=== PATIENT | female | born 1940 | race Caucasian/White ===

== ENCOUNTER 2019-12-04 06:00 | Outpatient (RCR) | payer MEDICARE, OTHER, SELFPAY | END 2019-12-05 23:59 | disposition home or self-care (01) | LOC: MOT 06:00 | PROVIDERS: Family Provider Internal Medicine; Referring Provider Internal Medicine; Visit Provider Internal Medicine | DX: I89.0 Lymphedema, not elsewhere classified (principal); L03.113 Cellulitis of right upper limb | CPT/HCPCS: 97140; 97166 ==

== ENCOUNTER 2019-12-06 06:00 | Outpatient (RCR) | payer MEDICARE, OTHER, SELFPAY | END 2020-01-03 23:59 | disposition home or self-care (01) | LOC: MOT 06:00 | PROVIDERS: Family Provider Internal Medicine; Referring Provider Internal Medicine; Visit Provider Internal Medicine | DX: I89.0 Lymphedema, not elsewhere classified (principal); L03.113 Cellulitis of right upper limb | CPT/HCPCS: 97110; 97140 ==

== ENCOUNTER 2020-09-20 12:30 | Outpatient (CLI) | payer MEDICARE, OTHER, SELFPAY | END 2020-09-20 12:31 | disposition home or self-care (01) | LOC: LAB 12:33 | PROVIDERS: Visit Provider Internal Medicine | DX: T82.7XXA Infection and inflammatory reaction due to other cardiac and vascular devices, implants and grafts, initial encounter (principal); I48.91 Unspecified atrial fibrillation; X58.XXXA Exposure to other specified factors, initial encounter | CPT/HCPCS: 85610 ==

== ENCOUNTER 2020-10-08 13:19 | Outpatient (CLI) | payer MEDICARE, OTHER, SELFPAY ==
[2020-10-08 14:27] LABS: INR 1.46 (0.8-1.2)
== END 2020-10-08 13:20 | disposition home or self-care (01) ==
PROVIDERS: Visit Provider Internal Medicine
DX: I48.91 Unspecified atrial fibrillation (principal)
CPT/HCPCS: 85610

== ENCOUNTER → 2020-11-06 13:14 | Outpatient (BNVA) | payer MEDICARE, OTHER, SELFPAY | PROVIDERS: Visit Provider Nurse Practitioner | DX: J22 Unspecified acute lower respiratory infection (principal); R50.9 Fever, unspecified | CPT/HCPCS: 87400 ==

== ENCOUNTER → 2020-11-09 17:12 | Outpatient (BNVA) | payer MEDICARE, OTHER, SELFPAY | PROVIDERS: Visit Provider Nurse Practitioner | DX: Z20.828 Contact with and (suspected) exposure to other viral communicable diseases (principal); R50.9 Fever, unspecified | CPT/HCPCS: 87635 ==

== ENCOUNTER 2020-11-11 13:28 | Emergency (ER) | payer MEDICARE, OTHER, SELFPAY ==
[2020-11-11 13:38] VITALS: BP 145/77; PULSE 105; RESP 20; TEMP 36.8; O2SAT 94; BMI 35.2
--- NOTE | 2020-11-11 16:03 | XR_ITS ---
WS: [id number] Portable AP upright chest, today Clinical Data: dyspnea/cough Comparison: Portable chest, 05/13/2019 Findings: No nodules, masses or effusions are seen. The heart is normal. The pulmonary vascularity is not increased. No pneumonia or pneumothorax is seen. The aortic arch and descending aorta are tortuo us. There is minimal opacity in the right upper lobe which could represent atelectasis. There are cli ps in the right axilla from previous surgery. 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 There are clips in the right upper quadrant from a cholecystectomy. XR/XR chest 1V portable [id number] Impression: Atherosclerosis.
--- NOTE | 2020-11-11 16:21 | ED_ITS ---
HPI - COVID General: Chief Complaint: COVID symptoms Stated Complaint: covid symptoms/fever Time Seen by Provider: 11/11/20 15:55 Triage information: Has fever, cough or shortness of breath . No known COVID + exposure last 14 days History of Present Illness: HPI Narrative: 80-year-old female presents emergency room with complaint of shortness of breath and cough. This began 1 week ago. She did have Covid testing done but the results are not back yet initially she had some diarrhea but that is improved. Cough is been nonproductive. When initially went to see the patient the Covid test was marked is pending while I was in the room seeing the patient it resulted and is positive. It was done on 11/09/2020 complaint: known COVID positive Prior covid testing: yes, results known Prior testing date: 11/09/20 COVID 19 common symptoms: positive fever(s), chills, cough, non-productive cough, dyspnea, fatigue, body aches, throat pain, nasal congestion, nausea and diarrhea COVID 19 other sytmptoms: negative chest pain or requiring oxygen Onset (ago): day(s) (7) Severity: mild Pertinent comorbid conditions: hypertension Treatment prior to arrival: acetaminophen COVID Results: SARS-CoV-2 RNA (RT-PCR) Detected (NOT DETECTED) A 11/09/20 17:12 11/09/20 Review of Systems Const: Reports: fever(s), chills, body aches and fatigue ENMT: Reports: throat pain and nasal congestion Card: Denies: chest pain, edema, dyspnea on exertion or orthopnea Resp: Reports: dyspnea and non-productive cough GI: Reports: nausea and diarrhea : Denies: flank pain, difficulty voiding, dysuria, urinary frequency or urinary urgency Skin/Breast: Denies: rash or pruritus PFS ED PFSH: Medical History (Updated 11/11/20 @ 16:53 by Chris Meng DO) A-fib HTN (hypertension) Female Reproductive History: Spontaneous abortions: No Physical Exam Const: COMMON NORMALS: no acute distress GENERAL APPEARANCE: cooperative and comfortable ORIENTATION/CONSCIOUSNESS: Yes awake, Yes oriented to person, Yes oriented to place and Yes oriented to time HENMT: COMMON NORMALS: normocephalic, atraumatic and hearing grossly normal bilaterally HEAD & SCALP: normocephalic and atraumatic Neck/C-Spine: COMMON NORMALS: no JVD Resp: COMMON NORMALS: normal respiratory effort, No retractions and No use of accessory muscles AUSCULTATION: crackles (bases) Cardio: COMMON NORMALS: no JVD, regular rate, regular rhythm and No murmurs present (Cardio) RATE: regular rate RHYTHM: regular rhythm GI: COMMON NORMALS: Soft to palpation and No hepatosplenomegaly present AUSCULTATION: Yes normoactive bowel sounds PALPATION: Yes Soft to palpation, No Tenderness to palpation present (GI), No Guarding due to palpation present (GI) and Yes No hepatosplenomegaly present Extremity: COMMON NORMALS: normal to inspection, capillary refill normal, no clubbing, cyanosis or edema, no calf tenderness and no pedal edema Neuro: SENSORIUM/ORIENTATION: Yes oriented to person, Yes oriented to place and Yes oriented to time Skin: COMMON NORMALS: no rashes or lesions noted GENERAL SKIN EXAM: no rashes or lesions noted Course Vital Signs: Vital signs: Vital Signs Temperature 98.2 F 11/11/20 13:38 Pulse Rate 92 11/11/20 16:54 Respiratory Rate 16 11/11/20 16:54 Blood Pressure 154/88 11/11/20 16:54 Pulse Oximetry 95 11/11/20 16:54 MDM - COVID MDM Narrative: Medical decision making narrative: Patient's test came back positive while she was in the emergency room was 1 was done as an outpatient couple days ago reviewed the findings with her she is tolerating well not requiring more oxygen we will go and discharge her home put her on dexamethasone however come back to the monoclonal antibody infusion clinic tomorrow discussed the risk benefits with her she would like to proceed and did sign the consent case management is scheduling in the infusion clinic. COVID Results: SARS-CoV-2 RNA (RT-PCR) Detected (NOT DETECTED) A 11/09/20 17:12 11/09/20 Monoclonal Antibody Treatments Inclusion/Exclusion Criteria weight >/= 40 kg and + direct Sars-Cov-2 test less than 7-10 days ago age >/= 65 and age >/= 55 and has hypertension not requiring hospitalization and not requiring oxygen (if not chronically on oxygen) Patient education patient/family/caregiver received/reviewed fact sheet, Emergency Use Authorization/unapproved drug status discussed with patient/family/caregiver, alternatives to this treatment discussed with patient/family/caregiver, risks a nd benefits of medication reviewed with patient/family/caregiver, patient/family/caregiver given opportunity for questions, which were answered and patient consents to receiving Monoclonal Antibody Treatment Plan for treatment Meets criteria for Monoclonal Antibody infusion Ordering Monoclonal Antibody infusion for another day Discharge Plan Discharge Patient Disposition: Home Clinical Impression: COVID-19 Condition: Stable Prescriptions: New dexamethasone 6 mg tablet 6 mg PO DAILY Qty: 7 RF: 0 Discontinued prednisone 20 mg tablet 40 mg PO DAILY@0600 RF: 0 No Action amlodipine 10 mg tablet 10 mg PO DAILY@0600 RF: 0 famotidine 20 mg tablet 20 mg PO BID@18 RF: 0 levothyroxine 125 mcg capsule 125 mcg PO DAILY@05 RF: 0 lisinopril 40 mg tablet 40 mg PO DAILY@0600 RF: 0 atorvastatin 40 mg tablet 40 mg PO DAILY@1800 RF: 0 warfarin 4 mg tablet 4 mg PO DAILY@1800 RF: 0 warfarin 6 mg tablet 6 mg PO DAILY@1800 RF: 0 cetirizine [Zyrtec] 10 mg tablet 10 mg PO DAILY PRN (Reason: Allergic Reaction) RF: 0 albuterol sulfate 90 mcg/actuation HFA aerosol inhaler 2 puff inhalation Q6H PRN (Reason: Shortness Of Breath) RF: 0 fluticasone propion-salmeterol [Advair Diskus] 100-50 mcg/dose blister with device 1 inh inhalation BID@ RF: 0 docusate sodium [Stool Softener] 100 mg capsule 100 mg PO DAILY PRN (Reason: constipation) RF: 0 cholecalciferol (vitamin D3) 125 mcg (5,000 unit) capsule 125 mcg PO DAILY@1200 RF: 0 albuterol sulfate 2.5 mg /3 mL (0.083 %) solution for nebulization 2.5 mg inhalation Q4H PRN (Reason: Shortness Of Breath) RF: 0 levofloxacin 500 mg tablet 500 mg PO DAILY@06 RF: 0 Discharge Orders: Discharge ED (Routine); Ordered 11/11/20 Ordered By: Chris Meng Discharge Diet: Usual diet Discharge Activity: Increase activity as tolerated Activity Restrictions/Additional Instructions: Case management will call to make arrangements for you to get a monoclonal antibody infusion at tomorrow's infusion clinic. Coding Level of Care Code ED Frame Table Operator for Chg Fwd Exam Comprehensive
[2020-11-11 16:54] VITALS: BP 154/88; PULSE 92; RESP 16; O2SAT 95
--- NOTE | 2020-11-11 17:10 | DCPLANNER ---
district branch manager was asked to help schedule a BAM infusion for patient. district branch manager called Ally in centralized scheduling and informed her that an order for the BAM infusion was being faxed to scheduling. district branch manager faxed order for infusion to centralized scheduling.
[2020-11-11 17:21] VITALS: BP 156/84; PULSE 105; RESP 16; TEMP 37.2; O2SAT 94
== END 2020-11-11 17:23 | disposition home or self-care (01) ==
PROVIDERS: Emergency Provider Family Medicine
DX: U07.1 COVID-19 (principal); Z79.01 Long term (current) use of anticoagulants; I48.91 Unspecified atrial fibrillation; I10 Essential (primary) hypertension
CPT/HCPCS: 12345; 71045; 99281; 99282

== ENCOUNTER 2020-11-12 14:02 | Outpatient (CLI) | payer MEDICARE, OTHER, SELFPAY ==
[2020-11-12 14:05] VITALS: BMI 33.8
[2020-11-12 14:20] VITALS: BP 134/87; PULSE 85; RESP 19; TEMP 36.9; O2SAT 96
--- NOTE | 2020-11-12 14:23 | AMB.MCA ---
Patient Information Referred by: Esperanza Symptom onset date: 11/05/20 COVID 19 common symptoms: positive cough, non-productive cough, throat pain, nasal congestion and nausea COVID 19 other sytmptoms: positive pleuritic pain; negative chest pressure, chest pain, requiring oxygen, requiring more oxygen, respiratory distress or cyanosis Severity: moderate Treatment prior to arrival: none [facility] COVID test results: SARS-CoV-2 RNA (RT-PCR) Detected (NOT DETECTED) A 11/09/20 17:12 11/09/20 Criteria/Plan Inclusion/Exclusion Criteria weight >/= 40kg, + direct test </= 10 days ago and symptom onset </= 10 days ago age >/= 65, age >/= 55 and has hypertension and age >/= 55 and has diabetes not requiring hospitalization, not requiring oxygen (if not chronically on oxygen) and no increase oxygen requirement (if chronically on oxygen) Patient education patient/caregiver received/reviewed fact sheet, Emergency Use Authorization/unapproved drug status discussed with patient/caregiver, alternatives to this treatment discussed with patient/caregiver, risks and benefits of medication reviewed with patient/caregiver, patient/caregiver given opportunity for questions, which were answered and patient/caregiver consents to receiving Monoclonal Antibody Treatment Plan for treatment Meets criteria for Monoclonal Antibody infusion Ordering Monoclonal Antibody infusion for today
[2020-11-12 15:03] VITALS: BP 131/63; PULSE 77; RESP 17; TEMP 36.7; O2SAT 95
[2020-11-12 16:20] VITALS: BP 122/71; PULSE 74; RESP 17; O2SAT 94
[2020-11-12 16:26] VITALS: BP 122/71; PULSE 74; RESP 17; TEMP 36.7; O2SAT 94
--- NOTE | 2020-11-12 16:27 | PC.NURSE ---
1625 iv discontinued with catheter intact, no new symptoms or concerns. pt escorted to private vehicle in wheelchair by nursing staff. no complaints at this time.
--- NOTE | 2020-11-18 15:27 | DCPLANNER ---
Addendum entered by Marilin Dudley 11/24/20 11:11: photo lab manager called to speak with patient after getting the BAM infusion. photo lab manager spoke with patients daughter, she stated that patient is doing a little better, that she had 3-4 really rough days but is doing better today. Patient has not been admitted to hospital anywhere. Original Note: photo lab manager had message that patient received the BAM infusion. photo lab manager called to check on patient after receiving the infusion. photo lab manager spoke with patients daughter, she stated that patient is not doing the best. Daughter stated that before the infusion patient had a fever, a lot of respatory symptoms, cough, head congestion, headaches. After the infusion, patient is still running a fever, had a rough day yesterday, 11.17.20, but better today. Patient does have home health in the home.
== END 2020-11-12 16:20 | disposition home or self-care (01) ==
PROVIDERS: PCP Internal Medicine; Visit Provider Family Medicine
DX: U07.1 COVID-19 (principal)
CPT/HCPCS: 96365; J7050

== ENCOUNTER 2021-09-02 14:27 | Emergency (ER) | payer MEDICARE, OTHER, SELFPAY ==
[2021-09-02 14:34] VITALS: BP 136/68; PULSE 81; RESP 18; TEMP 36.2; O2SAT 98; BMI 36.6
--- NOTE | 2021-09-02 14:39 | ED_ITS ---
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 She states her right leg somehow got bent back behind me when she fell. She denies striking her head or LOC. She does not complain of neck pain or back pain. She has complaints of right knee and lower leg pain as well as foot pain. She tells me she has not been able to be ambulatory since the fall secondary to discomfort in the right leg. MD complaint: knee injury, leg injury, ankle injury and foot injury Onset (ago): hour(s) Injury: Right: knee, ankle and foot Place: home Severity: moderate Relieving factors: immobilization Exacerbating factors: weight bearing, movement and palpation Context: fall Associated symptoms: Reports inability to bear weight Other symptoms: none Review of Systems Const: Denies: fever(s), chills, body aches or fatigue Eyes: Denies: change in vision Card: Denies: chest pain Resp: Denies: dyspnea GI: Denies: abdominal pain Musc: Reports: extremity pain (R leg) and joint pain (R knee, R ankle); Denies: neck pain or back pain Neuro: Denies: headache(s), numbness in extremities, weakness in extremities, sensory changes or dizziness [facility] ED PFSH: Medical History (Updated 09/02/21 @ 15:39 by FREEDOM Martino) A-fib HTN (hypertension) Female Reproductive History: Spontaneous abortions: No Physical Exam Const: COMMON NORMALS: no acute distress, patient oriented x3 and no limitations GENERAL APPEARANCE: cooperative NUTRITIONAL APPEARANCE: obese ORIENTATION/CONSCIOUSNESS: Yes awake, Yes oriented to person, Yes oriented to place and Yes oriented to time HENMT: COMMON NORMALS: normocephalic and atraumatic HEAD & SCALP: normocephalic and atraumatic Neck/C-Spine: COMMON NORMALS: full ROM CERVICAL SPINE: No pain with cervical ROM and No Cervical spine tenderness Chest: COMMONS NORMALS: normal inspection of the chest and normal palpation of entire chest wall Resp: COMMON NORMALS: normal respiratory effort Cardio: COMMON NORMALS: regular rate and regular rhythm RATE: regular rate RHYTHM: regular rhythm Back/Pelvis: THORACIC SPINE/UPPER BACK: Yes normal to inspection and No thoracic spinal tenderness LUMBAR SPINE/LOWER BACK: Yes normal to inspection and No lumbar spinal tenderness Extremity: GENERAL: Yes normal exam except as noted RIGHT LOWER EXTREMITY: Yes knee joint (TTP lateral R knee; maintains fairly good ROM) Right knee: Yes inspection (no effusion noted) and Yes neurovascular exam (normal), Yes foot & digits (TTP to medial ankle with mild swelling) and Yes foot & digits (swelli ng/ecchymosis to R dorsal foot) Right foot and digits: Yes neurovascular exam (normal) Neuro: DELBERT COMA SCALE: document [facility] findings Delbert coma scale eye opening: Spontaneous [place] coma scale verbal response: Orientated [place] coma scale motor response: Obey commands [place] coma scale total score: 15 COMMON NORMALS: patient oriented x3, moves all extremities, no focal motor deficits and no sensory deficits noted SENSORIUM/ORIENTATION: Yes oriented to person, Yes oriented to place and Yes oriented to time Skin: COMMON NORMALS: no rashes or lesions noted GENERAL SKIN EXAM: no rashes or lesions noted TRAUMA: no lacerations or abrasions Course Vital Signs: Vital signs: Vital Signs Temperature 97.2 F L 09/02/21 14:34 Pulse Rate 77 09/02/21 14:45 Respiratory Rate 18 09/02/21 14:45 Blood Pressure 136/68 09/02/21 14:34 Pulse Oximetry 95 09/02/21 14:45 MDM - Extremity Injury (Lower) MDM Narrative: Medical decision making narrative: Patient's XRs are normal. Daughter states patient has a wheelchair that she can use at home to help maneuver around the home. Recommend ice and elevation and follow-up with primary care in 3 to 5 days if symptoms are not improving. Imaging Data^: XR R ankle: Radiologist's impression: [place] [address] [id number] ReportSigned Patient: Sue Berry #: [id number]: 1940Acct#:[id number]/Sex: 81 / FADM Date: 09/02/21Loc: ERRoom/Be d:Attending Dr: Ordering Provider/Ordering MD: Brenda Hernández Date of Service: 09/02/21 Procedure(s): XR ankle RT min 3V* 43046 Accession Number(s): [id number] Report Number: [id number] WS: [email or web address] Exam: XR ankle RT min 3V* 35485 Date/Time of Exam: 09/02/2021 2:49 PM Reason For Exam: injury/swelling/pain No fracture or dislocation. The ankle mortise is intact. Mild soft tissue swelli ng laterally. XR/XR ankle RT min 3V* 82133 IMPRESSION: 1. Soft tissue swelling-no acute fracture. Dictated By:Damonigned By:Damonigned Date/ Time:09/02/21 1511DD/ 10 XR R knee: Radiologist's impression: [place] [address] XRay Report Signed Patient: Brenda Berry Unit #: [id number] : 1940 Age/Sex: 81 / F ADM Date: 09/02/21 Loc: ER Room/Bed: Attending Dr: Ordering Provider/Ordering MD: Brenda Hernández Date of Service: 09/02/21 Procedure(s): XR knee RT 3V* 05123 Accession Number(s): [id number] Report Number: [id number] WS: [email or web address] Exam: XR knee RT 3V* 61043 Date/Time of Exam: 09/02/2021 2:49 PM Reason For Exam: injury/pain No fracture or dislocation noted. Articular relationships are intact. No joint effusion. XR/XR knee RT 3V* 61896 Impression: Normal right knee Kellgren-Devonte Classification: 0 Dictated By: Praveen Dsouza DO Signed By: Praveen Dsouza DO Signed Date/Time: 09/02/21 1513 DD/ 1512 XR R tib/fib: Radiologist's impression: Jildy [employer] Speech [address] [place] [address] XRay Report Signed Patient: Brenda Berry Unit #: [id number] : 1940 Age/Sex: 81 / F ADM Date: 09/02/21 Loc: ER Room/Bed: Attending Dr: Ordering Provider/Ordering MD: Brenda Hernández Date of Service: 09/02/21 Procedure(s): XR tibia fibula RT 2V 41498 Accession Number(s): [id number] Report Number: [id number] WS: [email or web address] Exam: XR tibia fibula RT 2V 45591 Date/Time of Exam: 09/02/2021 2:49 PM Reason For Exam: injury No fracture or dislocation. Articular relationships are intact. Scattered soft tissue calcifications noted posteriorly. XR/XR tibia fibula RT 2V 81637 IMPRESSION: 1. No fracture or dislocation. Dictated By: Praeven Dsouza DO Signed By: Praveen Dsouza DO Signed Date/Time: 09/02/21 1513 DD/ 1513 XR R foot: Radiologist's impression: [address] [address] XRay Report Signed Patient: Brenda Berry Unit #: [id number] : 1940 Age/Sex: 81 / F ADM Date: 09/02/21 Loc: ER Room/Bed: Attending Dr: Ordering Provider/Ordering MD: Brenda Hernández Date of Service: 09/02/21 Procedure(s): XR foot RT min 3V* 93965 Accession Number(s): [id number] Report Number: [id number] WS: [email or web address] Exam: XR foot RT min 3V* 66092 Date/Time of Exam: 09/02/2021 2:49 PM Reason For Exam: swelling/injury/pain No acute fracture or dislocation. Osteopenia. 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 Normal soft tissues. XR/XR foot RT min 3V* 88836 IMPRESSION: 1. No acute fracture. Dictated By: Praveen Dsouza DO Signed By: Praveen Dsouza DO Signed Date/Time: 09/02/211511 DD/ 10 Discharge Plan Discharge Patient Disposition: Home Clinical Impression: Fall from slipping Qualifiers: Encounter type: initial encounter Qualified Code(s): W01.0XXA - Fall on same level from slipping, tripping and stumbling without subsequent striking against object, initial encounter Injury of right lower extremity Qualifiers: Encounter type: initial encounter Qualified Code(s): S89.91XA - Unspecified injury of right lower leg, initial encounter Condition: Stable Prescriptions: No Action amlodipine 10 mg tablet 10 mg PO DAILY@0600 RF: 0 famotidine 20 mg tablet 20 mg PO BID@18 RF: 0 levothyroxine 125 mcg capsule 125 mcg PO DAILY@05 RF: 0 lisinopril 40 mg tablet 40 mg PO DAILY@0600 RF: 0 atorvastatin 40 mg tablet 40 mg PO DAILY@1800 RF: 0 cetirizine [Zyrtec] 10 mg tablet 10 mg PO DAILY@0600 RF: 0 albuterol sulfate 90 mcg/actuation HFA aerosol inhaler 2 puff inhalation Q6H PRN (Reason: Shortness Of Breath) RF: 0 fluticasone propion-salmeterol [Advair Diskus] 100-50 mcg/dose blister with device 1 inh inhalation BID@ RF: 0 docusate sodium [Stool Softener] 100 mg capsule 100 mg PO DAILY PRN (Reason: constipation) RF: 0 cholecalciferol (vitamin D3) 125 mcg (5,000 unit) capsule 125 mcg PO DAILY@1200 RF: 0 albuterol sulfate 2.5 mg /3 mL (0.083 %) solution for nebulization 2.5 mg inhalation Q4H PRN (Reason: Shortness Of Breath) RF: 0 multivitamin Tablet 1 tab PO DAILY RF: 0 clobetasol 0.05 % Cream 1 applic TOPICAL BID PRN (Reason: Rash) RF: 0 Vitamin B-12 500 mcg Tablet 500 mcg PO DAILY RF: 0 folic acid 1 mg Tablet 1 mg PO DAILY RF: 0 doxycycline hyclate 100 mg tablet 100 mg PO DAILY RF: 0 Eliquis 5 mg tablet 5 mg PO BID RF: 0 Discharge Orders: Discharge ED (Routine); Ordered 09/02/21 Ordered By: Brenda Hernández Referrals: Kobe Miller DO [Primary Care Provider] - Patient Instructions: R.I.C.E. Treatment (ED) Coding Level of Care Code ED Bulb Planter for Chg Fwd Exam Comprehensive
--- NOTE | 2021-09-02 14:44 | XR_ITS ---
WS: [email or web address] Exam: XR ankle RT min 3V* [id number] Date/Time of Exam: 09/02/2021 2:49 PM Reason For Exam: injury/swelling/pain No fracture or dislocation. The ankle mortise is intact. Mild soft tissue swelling laterally. XR/XR ankle RT min 3V* 45836 IMPRESSION: 1. Soft tissue swelling-no acute fracture.
--- NOTE | 2021-09-02 14:44 | XR_ITS ---
WS: [email or web address] Exam: XR tibia fibula RT 2V 42951 Date/Time of Exam: 09/02/2021 2:49 PM Reason For Exam: injury No fracture or dislocation. Articular relationships are intact. Scattered soft tissue calcifications noted posteriorly. XR/XR tibia fibula RT 2V 91264 IMPRESSION: 1. No fracture or dislocation.
--- NOTE | 2021-09-02 14:44 | XR_ITS ---
WS: [email or web address] Exam: XR foot RT min 3V* 36769 Date/Time of Exam: 09/02/2021 2:49 PM Reason For Exam: swelling/injury/pain No acute fracture or dislocation. Osteopenia. 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 Normal soft tissues. XR/XR foot RT min 3V* 29657 IMPRESSION: 1. No acute fracture.
--- NOTE | 2021-09-02 14:44 | XR_ITS ---
WS: [email or web address] Exam: XR knee RT 3V* 49738 Date/Time of Exam: 09/02/2021 2:49 PM Reason For Exam: injury/pain No fracture or dislocation noted. Articular relationships are intact. No joint effusion. XR/XR knee RT 3V* 08144 Impression: Normal right knee Kellgren-Devonte Classification: 0
[2021-09-02 14:45] VITALS: PULSE 77; PULSE 79; RESP 18; O2SAT 95
== END 2021-09-02 15:50 | disposition home or self-care (01) ==
PROVIDERS: Emergency Provider Physician Assistant; PCP Internal Medicine
DX: S89.91XA Unspecified injury of right lower leg, initial encounter (principal); W01.0XXA Fall on same level from slipping, tripping and stumbling without subsequent striking against object, initial encounter; I48.91 Unspecified atrial fibrillation; Z79.01 Long term (current) use of anticoagulants; I10 Essential (primary) hypertension
CPT/HCPCS: 73562; 73590; 73610; 73630; 99282

== ENCOUNTER → 2021-11-27 14:53 | Outpatient (BNVA) | payer MEDICARE, OTHER, SELFPAY | PROVIDERS: PCP Internal Medicine; Visit Provider Emergency Medicine | DX: Z20.822 Contact with and (suspected) exposure to COVID-19 (principal); R11.0 Nausea; J45.21 Mild intermittent asthma with (acute) exacerbation | CPT/HCPCS: 87635 ==

== ENCOUNTER 2021-11-30 16:23 | Outpatient (CLI) | payer MEDICARE, OTHER, SELFPAY ==
--- NOTE | 2021-11-30 16:33 | XRR_ITS ---
PROCEDURE INFORMATION: Exam: XR Chest Exam date and time: 11/30/2021 4:33 PM Age: 81 years old Clinical indication: Cough and fever and other: Positive covid; Patient HX: Covid positive; Cough, fever; PT says had difficulty with anti body infusion today; Additional info: U07.1 - covid-19, changed to 1 view due to +covid TECHNIQUE: Imaging protocol: XR of the chest. Views: 1 view. COMPARISON: CR XR chest 1V portable [id number] 11/11/2020 4:06 PM FINDINGS: Lungs: Minimal nonspecific opacity in the left lung base, similar to the findings on 11/11/2020. No consolidation. Pleural spaces: There is no pleural effusion or pneumothorax. Heart/Mediastinum: Cardiomediastinal contours are unremarkable. Bones/joints: Bones are unremarkable. Soft tissues: Right axillary surgical clips noted. XR/XR chest 1V 76448 IMPRESSION: 1. No pulmonary consolidation. 2. Minimal opacity at the left lung base likely represents scarring or atelectasis and is stable since 11/11/2020.
== END 2021-11-30 16:24 | disposition home or self-care (01) ==
PROVIDERS: PCP Internal Medicine; Visit Provider Emergency Medicine
DX: U07.1 COVID-19 (principal)
CPT/HCPCS: 71045

== ENCOUNTER 2022-03-14 22:53 | Emergency (ER) | payer MEDICARE, OTHER, SELFPAY ==
[2022-03-14 23:00] VITALS: BP 225/92; PULSE 75; RESP 18; TEMP 36.6; O2SAT 97; BMI 38.8
--- NOTE | 2022-03-14 23:04 | CTR_ITS ---
PROCEDURE INFORMATION: Exam: CT Cervical Spine Without Contrast Exam date and time: 03/14/2022 11:18 PM Age: 81 years old Clinical indication: Injury or trauma; Blunt trauma; Patient HX: Patient fell backwards at home and hit occiput on floor. Currently on eliquis. C collar in place. ; Additional info: Fall TECHNIQUE: Imaging protocol: Computed tomography images of the cervical spine without contrast. Radiation optimization: All CT scans at this facility use at least one of these dose optimization techniques: automated exposure control; mA and/or kV adjustment per patient size (includes targeted exams where dose is matched to clinical indication); or iterative reconstruction. COMPARISON: CR Cervical Spine AP/Lat* [id number] 05/13/2019 1:15 PM RADIATION DOSE METRICS: Total DLP (mGy-cm): 647.77 FINDINGS: Vertebrae: Mild degenerative changes are present in the cervical spine. No area of significant canal stenosis. No acute fracture. Spinal alignment is normal. Soft tissues: Unremarkable. Lungs: Lung apices are normal. CT/CT cervical spin wo con* 64517 IMPRESSION: No cervical spine fracture.
--- NOTE | 2022-03-14 23:04 | CTR_ITS ---
PROCEDURE INFORMATION: Exam: CT Head Without Contrast Exam date and time: 03/14/2022 11:15 PM Age: 81 years old Clinical indication: Injury or trauma; Fall; Blunt trauma (contusions or hematomas); Patient HX: Patient fell backwards at home and hit occiput on floor. Currently on eliquis. C collar in place. TECHNIQUE: Imaging protocol: Computed tomography of the head without contrast. Radiation optimization: All CT scans at this facility use at least one of these dose optimization techniques: automated exposure control; mA and/or kV adjustment per patient size (includes targeted exams where dose is matched to clinical indication); or iterative reconstruction. 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 Mild atrophy and mild white matter chronic microvascular changes are noted. Cerebral ventricles: No ventriculomegaly. Paranasal sinuses: Visualized sinuses are unremarkable. No fluid levels. Mastoid air cells: Visualized mastoid air cells are well aerated. Bones/joints: Unremarkable. No acute fracture. Soft tissues: Unremarkable. CT/CT head wo con* [id number] IMPRESSION: No acute intracranial abnormality.
--- NOTE | 2022-03-14 23:07 | W.ED.FALL ---
HPI - Fall General: Chief Complaint: Fall Stated Complaint: Fall Time Seen by Provider: 03/14/22 22:58 Source: patient and EMS Mode of arrival: EMS Limitations: no limitations History of Present Illness: 81-year-old female states that she had went to stand on the scales in the bathroom she states that she slipped and fell backwards she states that she did hit her head on the bathroom floor this happened roughly an hour ago she does have a headache along with neck pain from her fall. States pain is a 7 out of 10 unsure if she had a loss of consciousness denies any other injuries or pain elsewhere. Associated symptoms-after fall: Reports headache(s) and neck pain; Denies abdominal pain or chest pain Review of Systems Const: Denies: fever(s), chills, body aches or change in appetite Eyes: Denies: blurry vision or eye discomfort ENMT: Denies: throat pain or dental pain Card: Denies: chest pain Resp: Denies: dyspnea GI: Denies: abdominal pain, nausea, vomiting or diarrhea : Denies: dysuria Musc: Reports: neck pain Skin/Breast: Denies: rash Neuro: Reports: headache(s) Psych: Denies: depression Gee/Lymph: Denies: easy bruising All/Imm: Denies: urticaria PFSH ED PFSH: Medical History A-fib Asthma HTN (hypertension) Social History Smoking and tobacco status: former smoker Female Reproductive History: Spontaneous abortions: No Physical Exam Const: COMMON NORMALS: no acute distress, patient oriented x3 and healthy appearing HENMT: COMMON NORMALS: normocephalic HEAD & SCALP: normocephalic OTHER: Tenderness to posterior scalp Eye: COMMON NORMALS: Equal, round and reactive pupils present and EOMs intact bilaterally PUPIL: Yes Equal, round and reactive pupils present Neck/C-Spine: OTHER: In c-collar Chest: COMMONS NORMALS: normal inspection of the chest and normal palpation of entire chest wall Resp: COMMON NORMALS: normal respiratory effort, No retractions, No use of accessory muscles and clear to auscultation bilaterally AUSCULTATION: clear to auscultation bilaterally Cardio: COMMON NORMALS: regular rate, regular rhythm and No murmurs present (Cardio) RATE: regular rate RHYTHM: regular rhythm GI: COMMON NORMALS: Normal to inspection, nondistended, normoactive bowel sounds present, Soft to palpation, non-tender and no masses PALPATION: Yes Soft to palpation Extremity: COMMON NORMALS: normal to inspection and full ROM Neuro: COMMON NORMALS: patient oriented x3, moves all extremities and no focal motor deficits Psych: COMMON NORMALS: mental status grossly normal, Normal thought process present and cooperative THOUGHT PROCESS: Normal thought process present Skin: COMMON NORMALS: no rashes or lesions noted and no wounds GENERAL SKIN EXAM: no rashes or lesions noted Course Vital Signs: Vital signs: Vital Signs Temperature 97.8 F 03/14/22 23:00 Pulse Rate 75 03/14/22 23:00 Respiratory Rate 18 03/14/22 23:00 Blood Pressure 225/92 03/14/22 23:00 Pulse Oximetry 97 03/14/22 23:00 MDM - Fall Medical Decision Making Patient presents here with a closed head injury from a fall her CT scans here are all normal she feels improved here she is stable for discharge follow-up with PCP and return if worsening she understands agrees to plan. Lab Data Radiology Impressions Cervical Spine CT 03/14/22 23:04 IMPRESSION: No cervical spine fracture. Head CT 03/14/22 23:04 IMPRESSION: No acute intracranial abnormality. Discharge Plan Discharge Patient Disposition: Home Clinical Impression: Fall Closed head injury Qualifiers: Encounter type: initial encounter Qualified Code(s): S09.90XA - Unspecified injury of head, initial encounter Condition: Stable Prescriptions: No Action amlodipine 10 mg tablet 10 mg PO DAILY@0600 0RF famotidine 20 mg tablet 20 mg PO BID@06,18 0RF levothyroxine 125 mcg capsule 125 mcg PO DAILY@05 0RF lisinopril 40 mg tablet 40 mg PO DAILY@0600 0RF atorvastatin 40 mg tablet 40 mg PO DAILY@1800 0RF cetirizine [Zyrtec] 10 mg tablet 10 mg PO DAILY@0600 0RF albuterol sulfate 90 mcg/actuation HFA aerosol inhaler 2 puff inhalation Q6H PRN (Reason: Shortness Of Breath) 0RF fluticasone propion-salmeterol [Advair Diskus] 100-50 mcg/dose blister with device 1 inh inhalation BID@06,18 0RF docusate sodium [Stool Softener] 100 mg capsule 100 mg PO DAILY PRN (Reason: constipation) 0RF cholecalciferol (vitamin D3) 125 mcg (5,000 unit) capsule 125 mcg PO DAILY@1200 0RF albuterol sulfate 2.5 mg /3 mL (0.083 %) solution for nebulization 2.5 mg inhalation Q4H PRN (Reason: Shortness Of Breath) 0RF tsvywlozrunhdem-sveprcdon-YX [Bromfed DM] 2-30-10 mg/5 mL syrup 3 ml PO Q6H PRN (Reason: cold symptoms) Qty: 60 0RF dexamethasone 2 mg tablet 6 mg PO DAILY 5 Days Qty: 15 0RF doxycycline hyclate 100 mg tablet 100 mg PO BID 7 Days Qty: 14 0RF ondansetron 4 mg tablet,disintegrating 4 mg PO Q6H PRN (Reason: nausea and vomiting) Qty: 12 0RF Rx Instructions: 340b please multivitamin Tablet 1 tab PO DAILY 0RF clobetasol 0.05 % Cream 1 applic TOPICAL BID PRN (Reason: Rash) 0RF Vitamin B-12 500 mcg Tablet 500 mcg PO DAILY 0RF folic acid 1 mg Tablet 1 mg PO DAILY 0RF Eliquis 5 mg tablet 5 mg PO BID 0RF Discharge Orders: Discharge ED (Routine); Ordered 03/14/22 Ordered By: Rico Rosario Referrals: Kobe Miller DO [Primary Care Provider] - 1-3 days Discharge Diet: Advance as tolerated Discharge Activity: Resume usual activity Patient Instructions: Head Injury (ED) Coding Level of Care Code ED Telemetry Registered Nurse for Chg Fwd Exam Comprehensive
[2022-03-14] MEDS: HYDROcodone-acetaminophen 5-325 mg Tablet 1 TAB PO (23:53)
[2022-03-14 23:54] VITALS: BP 176/84; PULSE 75; RESP 18; O2SAT 96
[2022-03-15 00:13] VITALS: BP 178/94; PULSE 70; RESP 18; O2SAT 96
== END 2022-03-15 00:05 | disposition home or self-care (01) ==
PROVIDERS: Emergency Provider Emergency Medicine; PCP Internal Medicine
DX: S09.90XA Unspecified injury of head, initial encounter (principal); W01.0XXA Fall on same level from slipping, tripping and stumbling without subsequent striking against object, initial encounter
CPT/HCPCS: 70450; 72125; 99283

== ENCOUNTER 2023-08-12 09:55 | Emergency (ER) | payer MEDICARE, OTHER, SELFPAY ==
[2023-08-12] VITALS (9 sets, daily range): BP systolic 138–229; BP diastolic 79–119; PULSE 63–78; RESP 16–18; TEMP 36.6–36.8; O2SAT 96–98; BMI 36.6
--- NOTE | 2023-08-12 10:03 | CTR_ITS ---
PROCEDURE INFORMATION: Exam: CT Thoracic Spine Without Contrast Exam date and time: 08/12/2023 10:30 AM Age: 83 years old Clinical indication: Injury or trauma; Fall; Blunt trauma (contusions or hematomas) TECHNIQUE: Imaging protocol: Computed tomography of the thoracic spine without contrast. Radiation optimization: All CT scans at this facility use at least one of these dose optimization techniques: automated exposure control; mA and/or kV adjustment per patient size (includes targeted exams where dose is matched to clinical indication); or iterative reconstruction. REPORTING DATA: Count of CT and Cardiac NM exams in prior 12 months: This patient has received 0 known CTs and 0 known cardiac nuclear medicine studies in the 12 months prior to the current study. COMPARISON: CT cervical spin wo con* [id number] 03/14/2022 11:18 PM RADIATION DOSE METRICS: Total DLP (mGy-cm): 953.41 FINDINGS: Bones/joints: No acute fracture is identified. The thoracic kyphosis is maintained. There is probable DISH. There is mild degenerative disc disease in the thoracic spine. The thoracic central spinal canal appears adequately patent. Soft tissues: No significant subcutaneous soft tissue swelling. Lymph nodes: A periportal lymph node measures 1.1 x 1.8 cm. A retroperitoneal lymph node measures 1.0 x 1.5 cm. A precarinal lymph node measures 1.3 x 1.7 cm. A subcarinal lymph node measures 1.4 x 3.0 cm. Lungs: Calcified granuloma in the left lower lobe. Ground-glass nodule in the left upper lobe measuring 5.9 mm (image 37). Pulmonary micronodule in the left upper lobe measuring 2.1 mm (image 37). Pulmonary micronodule in the left upper lobe measuring 1.7 mm (image 46). Solid pulmonary nodule in the left upper lobe measuring 3.2 mm (image 74). Solid pulmonary nodule in the right lower lobe measuring 2.1 mm (image 82). Nodule in the right upper lobe measuring 7.8 mm (image 49). Heart: The heart is enlarged. Coronary arteries: Coronary arterial calcifications are noted. CT/CT thoracic spin wo con* [id number] IMPRESSION: 1. No acute fracture in the thoracic spine. 2. Solid and ground-glass pulmonary nodules measuring up to 7.8 mm. As per Fleischner Society 2017 guidelines for follow-up and management of pulmonary nodules: For patients at low risk (minimal or absent history of smoking and of other known risk factors), recommend CT at 3-6 months, then consider CT at 18-24 months. For patient at high risk (history of smoking or of other known risk factors), recommend CT at 3-6 months, then CT at 18-24 months. 3. Mediastinal, retroperitoneal and periportal lymphadenopathy. 4. Cardiomegaly with coronary artery disease.
--- NOTE | 2023-08-12 10:03 | CTR_ITS ---
PROCEDURE INFORMATION: Exam: CT Cervical Spine Without Contrast Exam date and time: 08/12/2023 10:34 AM Age: 83 years old Clinical indication: Injury or trauma; Fall; Blunt trauma TECHNIQUE: Imaging protocol: Computed tomography of the cervical spine without contrast. Radiation optimization: All CT scans at this facility use at least one of these dose optimization techniques: automated exposure control; mA and/or kV adjustment per patient size (includes targeted exams where dose is matched to clinical indication); or iterative reconstruction. REPORTING DATA: Count of CT and Cardiac NM exams in prior 12 months: This patient has received 0 known CTs and 0 known cardiac nuclear medicine studies in the 12 months prior to the current study. COMPARISON: CT cervical spin wo con* [id number] 03/14/2022 11:18 PM RADIATION DOSE METRICS: Total DLP (mGy-cm): 575.9 FINDINGS: Bones/joints: Cervical curvature and alignment is unremarkable. Degenerative changes mid-lower cervical spine with disc space narrowing and endplate osteophytic lipping. No severe stenosis of the central canal or neural foramina evident. No fracture, dislocation or traumatic spondylolisthesis detected. Lungs: Lung apices are normal. Soft tissues: Unremarkable. CT/CT cervical spin wo con* [id number] IMPRESSION: No acute bony abnormalities.
--- NOTE | 2023-08-12 10:03 | CTR_ITS ---
PROCEDURE INFORMATION: Exam: CT Head Without Contrast Exam date and time: 08/12/2023 10:34 AM Age: 83 years old Clinical indication: Injury or trauma; Fall; Blunt trauma (contusions or hematomas) TECHNIQUE: Imaging protocol: Computed tomography of the head without contrast. Radiation optimization: All CT scans at this facility use at least one of these dose optimization techniques: automated exposure control; mA and/or kV adjustment per patient size (includes targeted exams where dose is matched to clinical indication); or iterative reconstruction. REPORTING DATA: Count of CT and Cardiac NM exams in prior 12 months: This patient has received 0 known CTs and 0 known cardiac nuclear medicine studies in the 12 months prior to the current study. 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 Stable 2 neurenteric is left basal ganglia. No evidence of intracranial hemorrhage. No areas of mass effect, edema or midline shift. Cerebral ventricles: Unremarkable for age. Paranasal sinuses: Mild mucosal thickening right maxillary sinus. Mastoid air cells: Visualized mastoid air cells are well aerated. Bones/joints: Hyperostosis frontalis interna. No acute fracture. Soft tissues: Unremarkable. CT/CT head wo con* [id number] IMPRESSION: No acute intracranial abnormalities.
--- NOTE | 2023-08-12 10:06 | ED_ITS ---
HPI - Fall General: Chief Complaint: Fall Stated Complaint: NECK/BACK PAIN S/P FALL Time Seen by Provider: 08/12/23 09:56 History of Present Illness: Brenda Berry is an 83-year-old female that presents to the emergency department after a fall from standing position. Patient states that she was getting up from her bed when she lost her balance and fell backwards. She struck the edge of the bed with her back and then slid to the floor. Is unclear if she hit her head. She is anticoagulated with Eliquis. Patient is primarily complaining of right-sided neck pain but also states that she gets dizzy when she stands up. Neck and upper thoracic pain is worse with head rotation Associated symptoms-after fall: Denies abdominal pain, chest pain, confusion, difficulty walking, headache(s), hematuria or neck pain Review of Systems General: Reports: 10 or more systems reviewed and unremarkable except in HPI and below Const: Denies: fever(s), chills, change in appetite, change in weight, fatigue or malaise Eyes: Denies: change in vision, eye discomfort, eye discharge or eye redness ENMT: Denies: throat pain, enlarged tonsils, odynophagia, hoarseness, ear or mastoid pain, ear discharge, change in hearing, tinnitus, nasal discharge, nasal congestion, post nasal drip or sinus pain Card: Denies: chest pain, palpitations, irregular heart rhythm, edema, dyspnea on exertion, orthopnea or leg pain with exertion Resp: Denies: dyspnea, productive cough, non-productive cough, wheezing, stridor or chest congestion GI: Denies: abdominal pain, nausea, vomiting, dysphagia, diarrhea, constipa tion, bloating, GI cramping or hematochezia : Denies: flank pain, difficulty voiding, dysuria, urinary frequency, urinary urgency, urinary hesitancy, oliguria or hematuria Musc: Denies: neck pain, back pain, extremity pain, joint pain, joint swelling, joint redness, joint warmth or muscle weakness Skin/Breast: Denies: rash, pruritus, erythema, photosensitivity or new lesions Neuro: Denies: headache(s), numbness in extremities, weakness in extremities, sensory changes, lack of coordination, difficulty walking, frequent falls, dizziness, confusion, Slurred speech present, difficulty communicating thoughts, seizure-like activity or involuntary movements Endo: Denies: polyuria, polydipsia or tired all the time Gee/Lymph: Denies: easy bruising or easy bleeding PFSH ED PFSH: Medical History A-fib Asthma HTN (hypertension) Social History Smoking and tobacco status: former smoker Female Reproductive History: Spontaneous abortions: No Physical Exam Const: COMMON NORMALS: no acute distress, patient oriented x3 and alert GENERAL APPEARANCE: cooperative ORIENTATION/CONSCIOUSNESS: Yes awake, Yes oriented to person, Yes oriented to place and Yes oriented to time HENMT: COMMON NORMALS: normocephalic and atraumatic HEAD & SCALP: normocephalic and atraumatic FACE & SINUS: normal facial exam MOUTH: Normal oral and palatal mucosa present THROAT: posterior oropharynx normal Eye: COMMON NORMALS: Equal, round and reactive pupils present, EOMs intact bilaterally, conjunctivae normal and no scleral icterus GENERAL EYE: appearance normal, both eyes and all related structures ALIGNMENT: Yes alignment normal PERIORBITAL: periorbital findings normal CONJUNCTIVA: Yes conjunctivae normal PUPIL: Yes Equal, round and reactive pupils present Neck/C-Spine: COMMON NORMALS: full ROM GENERAL: Yes normal visual inspection Lymph: LYMPHATIC: no lymphadenopathy noted Chest: COMMONS NORMALS: normal inspection of the chest Breast/axilla inspection: Yes no chest deformity, asymmetry, normal contours, no nodules, masses, tenderness Resp: COMMON NORMALS: normal respiratory effort, No retractions, No use of accessory muscles and clear to auscultation bilaterally EFFORT & INSPECTION: Yes able to speak in complete sentences and Yes symmetric chest movement AUSCULTATION: clear to auscultation bilaterally Cardio: COMMON NORMALS: regular rate, regular rhythm and Peripheral pulses 2+ throughout RATE: regular rate RHYTHM: regular rhythm PERIPHERAL PULSES: Peripheral pulses 2+ throughout GI: COMMON NORMALS: Normal to inspection, nondistended, normoactive bowel sounds present, Soft to palpation, non-tender and No hepatosplenomegaly present INSPECTION: Yes normal to inspection AUSCULTATION: Yes normoactive bowel sounds PALPATION: Yes Soft to palpation and Yes No hepatosplenomegaly present RECTAL EXAM: deferred Extremity: COMMON NORMALS: normal to inspection GENERAL: Yes normal exam except as noted Neuro: COMMON NORMALS: patient oriented x3 SENSORIUM/ORIENTATION: Yes alert, Yes oriented to person, Yes oriented to place and Yes oriented to time CRANIAL NERVES: Yes CN normal except as noted Psych: COMMON NORMALS: mental status grossly normal, Normal thought process present, cooperative, activity/motor behavior normal, denies homicidal ideation and denies suicidal ideation THOUGHT PROCESS: Normal thought process present Skin: COMMON NORMALS: no rashes or lesions noted, no wounds and turgor normal GENERAL SKIN EXAM: no rashes or lesions noted and turgor normal Course Vital Signs: Vital signs: Vital Signs Temperature 98 F 08/12/23 10:02 Pulse Rate 63 08/12/23 10:54 Respiratory Rate 18 08/12/23 10:02 Blood Pressure 220/114 08/12/23 13:23 Pulse Oximetry 98 08/12/23 12:00 Oxygen Delivery Me thod Room Air 08/12/23 12:00 MDM - Fall Medical Decision Making Patient is an 83-year-old female that presents to the emergency department with complaints of neck and back pain after a fall from standing. Patient states that her up last night to use restroom at about 0 100. When returning back to bed lost her balance and fell backwards striking her upper back on the edge of her bed. She denies striking her head or LOC. She is anticoagulated Differential diagnosis includes slip and fall, loss of balance, syncope. Patient did describe an episode that was possibly near syncope. Here in the emergency department we obtained a CT head, cervical, thoracic spine and chest x-ray. Also obtain laboratory studies including a troponin and serial EKGs. The CT head and cervical spine were unremarkable. The CT thoracic spine revealed no acute findings however there are several lung nodules that were mentioned. Patient is seeing a hemming and tacking machine operator re: these findings. Patient also noted went a chest x-ray which is stable from last x-ray. Patient does have a pacemaker during her stay she was seen to have a normal sinus rhythm then paced rhythm. She did not display any symptoms of orthostatic hypotension and orthostatics were negative. Patient was ambulated with a walker and she did well. Later in her stay she became hypertensive and her home med isosorbide was given Patient has yet to take all of her morning meds. I did obtain laboratory studies which were largely unremarkable. Creatinine is mildly elevated but unchanged from baseline and her troponin was 14 which is unchanged from baseline. 2-hour delta was -0.10 Patient, her daughter, and I all discussed neck steps. Ultimately they want to go home. Patient has follow-up with her senior manufacturing engineer this week. We have reviewed all of the findings and I have advised them should they go home they need to return promptly if she develops any new, concerning, worsening symptoms including return of hypertension syncope call while additional falls, or chest pain or shortness of breath. They are agreeable. Lab Data 08/12/23 10:22 08/12/23 11:22 Radiology Impressions Cervical Spine CT 08/12/23 10:03 IMPRESSION: No acute bony abnormalities. Head CT 08/12/23 10:03 IMPRESSION: No acute intracranial abnormalities. Thoracic Spine CT 08/12/23 10:03 IMPRESSION: 1. No acute fracture in the thoracic spine. 2. Solid and ground-glass pulmonary nodules measuring up to 7.8 mm. As per Fleischner Society 2017 guidelines for follow-up and management of pulmonary nodules: For patients at low risk (minimal or absent history of smoking and of other known risk factors), recommend CT at 3-6 months, then consider CT at 18-24 months. For patient at high risk (history of smoking or of other known risk factors), recommend CT at 3-6 months, then CT at 18-24 months. 3. Mediastinal, retroperitoneal and periportal lymphadenopathy. 4. Cardiomegaly with coronary artery disease. Chest X-Ray 08/12/23 10:06 IMPRESSION: Mild cardiomegaly, decreased lung volumes, otherwise negative chest. Laboratory Results WBC 7.96 10^3/uL (3.29-11.43) 08/12/23 10: RBC 4.94 10^6/uL (3.85-5.65) 08/12/23 10: Hgb 13.00 g/dL (11.27-16.99) 08/12/23 10: Hct 44.4 % (36-47) 08/12/23 10: MCV 89.9 fl (85-98) 08/12/23 10: MCH 26.3 pg (27-33) L 08/12/23 10: MCHC 29.3 g/dL (30-55) L 08/12/23 10: RDW 14.7 % (12.1-15.1) 08/12/23 10:22 Plt Count 188 10^3/cmm (157-399) 08/12/23 10:22 MPV 10.7 fL (7.4-10.4) H 08/12/23 10:22 Neut % (Auto) 60.8 % 08/12/23 10:22 Lymph % (Auto) 30.4 % 08/12/23 10:22 [place] % (Auto) 5.2 % 08/12/23 10:22 Eos % (Auto) 2.3 % 08/12/23 10:22 Baso % (Auto) 1.0 % 08/12/23 10:22 Neut # (Auto) 4.85 10^3/uL (1.8-7.7) 08/12/23 10:22 Lymph # (Auto) 2.4 10^3/uL (0.8-4.8) 08/12/23 10:22 [place] # (Auto) 0.4 10^3/uL (0.2-0.9) 08/12/23 10:22 Eos # (Auto) 0.2 10^3/uL (0.0-0.8) 08/12/23 10:22 Baso # (Auto) 0.1 10^3/uL (0.0-0.1) 08/12/23 10:22 Nucleated RBC % (auto) 0 % 08/12/23 10:22 Nucleated RBCs # 0.0 /100WBC 08/12/23 10:22 Sodium 142 mmol/L (136-145) 08/12/23 11:22 Potassium 4.6 mmol/L (3.5-5.1) 08/12/23 11:22 Chloride 107 mmol/L (98-107) 08/12/23 11:22 Carbon Dioxide 24 mmol/L (22-29) 08/12/23 11:22 Anion Gap 15.6 (5-19) 08/12/23 11:22 BUN 18 mg/dL (8-23) 08/12/23 11:22 Creatinine 1.0 mg/dL (0.5-0.9) H 08/12/23 11:22 GFR Calculation Not Reportable 08/12/23 11:22 Glucose 117 mg/dL (65-115) H 08/12/23 11:22 Calculated Osmolality 297 mOsm/kg (285-295) H 08/12/23 11:22 Calcium 9.2 mg/dL (8.5-10.5) 08/12/23 11:22 Total Bilirubin 0.7 mg/dL (0.15-1.2) 08/12/23 11:22 AST 28 U/L (0-32) 08/12/23 11:22 ALT 17 U/L (0-33) 08/12/23 11:22 Alkaline Phosphatase 81 U/L (35-105) 08/12/23 11:22 Troponin T Baseline 14 ng/L (0-10) H 08/12/23 10:22 Troponin T 120 Minute 13.90 ng/L (0-10) H 08/12/23 12:21 Delta Troponin T -0.10 ABS# (0-10) L 08/12/23 12:21 Total Protein 6.7 g/dL (6.6-8.7) 08/12/23 11:22 Albumin 4.1 g/dL (3.5-5.2) 08/12/23 11:22 Globulin 2.6 g/dL (1.3-4.6) 08/12/23 11:22 All radiology interpretation(s) finalized by discharge Discharge Plan Discharge Patient Disposition: Home Clinical Impression: Fall, Hypertension, Musculoskeletal back pain Condition: Stable Prescriptions: No Action famotidine 20 mg tablet 20 mg PO BID@06,18 atorvastatin 40 mg tablet 40 mg PO BEDTIME cetirizine [Zyrtec] 10 mg tablet 10 mg PO QAM albuterol sulfate 90 mcg/actuation HFA aerosol inhaler 2 puff inhalation Q6H PRN (Reason: Shortness Of Breath) fluticasone propion-salmeterol [Advair Diskus] 100-50 mcg/dose blister with device 1 inh inhalation QAM docusate sodium [Stool Softener] 100 mg capsule 100 mg PO DAILY PRN (Reason: constipation) cholecalciferol (vitamin D3) 125 mcg (5,000 unit) capsule 125 mcg PO DAILY@1200 albuterol sulfate 2.5 mg /3 mL (0.083 %) solution for nebulization 2.5 mg inhalation Q4H PRN (Reason: Shortness Of Breath) ondansetron 4 mg tablet,disintegrating 4 mg PO Q6H PRN (Reason: nausea and vomiting) Qty: 12 0RF Rx Instructions: 340b please multivitamin Tablet 1 tab PO DAILY clobetasol 0.05 % Cream 1 applic TOPICAL BID PRN (Reason: Rash) cyanocobalamin (vitamin B-12) [Vitamin B-12] 500 mcg Tablet 500 mcg PO DAILY folic acid 1 mg Tablet 1 mg PO DAILY Eliquis 5 mg tablet 5 mg PO BID Lasix 40 mg Tablet 40 mg PO DAILY PRN (Reason: Edema) clonidine 0.2 mg/24 hr patch weekly See Rx Instructions .ROUTE .COMPLEX Rx Instructions: APPLY 1 PATCH TOPICALLY TO SKIN ONCE A WEEK DIRECTED (change on sunday) isosorbide mononitrate 30 mg tablet extended release 24 hr 30 mg PO QAM levothyroxine 125 mcg tablet 125 mcg PO QAM valsartan 320 mg tablet 320 mg PO QAM mupirocin 2 % ointment 1 applic TOPICAL BID potassium chloride 20 mEq Tablet Extended Release 20 meq PO DAILY PRN (Reason: while taking lasix) doxycycline hyclate 100 mg tablet 100 mg PO QPM Discharge Orders: Discharge ED (Routine); Ordered 08/12/23 [facility]dered By: [facility] Referrals: Kobe Miller DO [Primary Care Provider] - Patient Instructions: Pain Management, Fall Prevention (ED), Chronic Hypertension (ED) Activity Restrictions/Additional Instructions: Use a walker when mobilizing Should your blood pressure not improve, you need to return to the emergency d epartment Should you develop chest pain or shortness of breath you need to return to the emergency department. Should you have a episode where you pass out or nearly passed out you need to be reevaluated in the emergency department Please follow-up with your senior manufacturing engineer as discussed Please return to the emergency department for any new concerning or worsening symptoms. Coding Level of Care Code ED Support Dba for Francisco Moss
--- NOTE | 2023-08-12 10:06 | XRR_ITS ---
PROCEDURE INFORMATION: Exam: XR Chest Exam date and time: 08/12/2023 10:39 AM Age: 83 years old Clinical indication: Injury or trauma; Fall; Blunt trauma (contusions or hematomas); Additional info: Dizziness TECHNIQUE: Imaging protocol: Radiologic exam of the chest. Views: 1 view. COMPARISON: CR XR chest 1V [id number] 11/30/2021 4:45 PM FINDINGS: Lungs: Lung volumes are somewhat decreased which may be due to body habitus. No infiltrates or overt CHF. Pleural spaces: Unremarkable. No pleural effusion. No pneumothorax. Heart/Mediastinum: Heart appears mildly enlarged, accentuated by decreased lung volumes. Bones/joints: Unremarkable for age. No acute abnormalities. XR/XR chest 1V portable [id number] IMPRESSION: Mild cardiomegaly, decreased lung volumes, otherwise negative chest.
--- NOTE | 2023-08-12 10:12 | ECG_ITS ---
[facility] Test Date: 2023-08-12 Pat Name: Brenda Berry Department: Room: Gender: Female Reel Fed Printer: : 1940 Requested By: Madonna Houston Order Number: [id number] Gerry MD: Zenon Aburto M.D. Measurements Intervals [place] Rate: 59 P: 37 CA: 191 QRS: -34 QRSD: 130 T: 10 QT: 443 QTc: 441 Interpretive Statements ELECTRONIC VENTRICULAR PACEMAKER Compared to ECG 05/13/2019 11:54:11 Sinus rhythm no longer present Intraventricular conduction delay no longer present Electronically Signed On 08-12-2023 22:52:28 CDT by Zenon Aburto M.D. [id number]
[2023-08-12 10:29] LABS: Basophils # 0.1 10^3/uL (0.0-0.1); Eosinophils # 0.2 10^3/uL (0.0-0.8); Eosinophils % 2.3 %; Hematocrit 44.4 % (36-47); Lymphocytes # 2.4 10^3/uL (0.8-4.8); Lymphocytes % 30.4 %; Mean Corpuscular HGB Conc 29.3 g/dL (30-55); Mean Corpuscular Hemoglobin 26.3 pg (27-33); Mean Corpuscular Volume 89.9 fl (85-98); Mean Platelet Volume 10.7 fL (7.4-10.4); Monocytes # 0.4 10^3/uL (0.2-0.9); Monocytes % 5.2 %; Neutrophils # 4.85 10^3/uL (1.8-7.7); Neutrophils % 60.8 %; Nucleated Red Blood Cells % 0 %; Platelet Count 188 10^3/cmm (157-399); Red Blood Count 4.94 10^6/uL (3.85-5.65); Red Cell Distribution Width 14.7 % (12.1-15.1); White Blood Count 7.96 10^3/uL (3.29-11.43)
[2023-08-12 10:55] LABS: Troponin(5th) Baseline 14 ng/L (0-10)
[2023-08-12 11:57] LABS: Alanine Aminotransferase 17 U/L (0-33); Albumin Level 4.1 g/dL (3.5-5.2); Alkaline Phosphatase 81 U/L (35-105); Anion Gap 15.6 (5-19); Aspartate Amino Transferase 28 U/L (0-32); Blood Urea Nitrogen 18 mg/dL (8-23); Calcium 9.2 mg/dL (8.5-10.5); Carbon Dioxide 24 mmol/L (22-29); Chloride 107 mmol/L (98-107); Globulin 2.6 g/dL (1.3-4.6); Glucose 117 mg/dL (65-115); Osmolality Calculated 297 mOsm/kg (285-295); Potassium 4.6 mmol/L (3.5-5.1); Sodium 142 mmol/L (136-145); Total Bilirubin 0.7 mg/dL (0.15-1.2); Total Protein 6.7 g/dL (6.6-8.7)
--- NOTE | 2023-08-12 12:04 | ECG_ITS ---
[facility] Test Date: 2023-08-12 Pat Name: Brenda Berry Department: Room: Gender: Female Head Wood Grinder: : 1940 Requested By: Madonna Houston Order Number: [id number] Reading MD: Zenon Aburto M.D. Measurements Intervals [place] Rate: 60 P: 0 HI: 0 QRS: -79 QRSD: 162 T: 83 QT: 481 QTc: 483 Interpretive Statements ELECTRONIC VENTRICULAR PACEMAKER Compared to ECG 08/12/2023 10:12:57 No significant changes Electronically Signed On 08-12-2023 22:57:53 CDT by Zenon Aburto M.D. [id number]
--- NOTE | 2023-08-12 12:08 | ECG_ITS ---
[facility] Test Date: 2023-08-12 Pat Name: Brenda Berry Department: Room: Gender: Female Thread Spooler: : 1940 Requested By: Madonna Houston Order Number: [id number] Gerry MD: Zenon Aburto M.D. Measurements Intervals [place] Rate: 60 P: 0 SC: 0 QRS: -68 QRSD: 155 T: 76 QT: 477 QTc: 478 Interpretive Statements ELECTRONIC VENTRICULAR PACEMAKER Compared to ECG 08/12/2023 12:04:44 No significant changes Electronically Signed On 08-12-2023 22:57:44 CDT by Zenon Aburto M.D. [id number]
--- NOTE | 2023-08-12 13:01 | PC.PHAR ---
pts daughter verified pts medications-pts daughter states the pt has a prn lasix and kcl-
[2023-08-12] MEDS: isosorbide mononitrate 20 mg Tablet 30 MG PO (13:25)
== END 2023-08-12 14:52 | disposition home or self-care (01) ==
PROVIDERS: Emergency Provider Nurse Practitioner; PCP Internal Medicine
DX: I11.9 Hypertensive heart disease without heart failure (principal); I25.10 Atherosclerotic heart disease of native coronary artery without angina pectoris; M54.89 Other dorsalgia; Z79.01 Long term (current) use of anticoagulants; Z87.891 Personal history of nicotine dependence
CPT/HCPCS: 36415; 70450; 71045; 72125; 72128; 80053; 84484; 85025; 93005; 99285; 99291